=== PATIENT | female | born 1980 | race Caucasian/White ===

== ENCOUNTER 2017-03-22 17:59 | Emergency (ER) | payer BC ==
[~2017-03-22] VITALS: Ht 162.6 cm; Wt 90.6 kg
[2017-03-22] MEDS ORDERED: PROCTOFOAM-HC10 GM PR (22:54)
[2017-03-22] MEDS ORDERED: NORCO 5/3251 TABLET PO (22:54)
[2017-03-22 23:12] VITALS: BP 131/89
== END 2017-03-22 23:13 | disposition home or self-care (01) ==
LOC: EME 17:59
PROC: 069Y0ZZ Drainage of Lower Vein, Open Approach (ICD-10-PCS; principal; 2017-03-22)
DX: K64.5 Perianal venous thrombosis (principal); F17.200 Nicotine dependence, unspecified, uncomplicated
CPT/HCPCS: 99281; 99284; J3010